=== PATIENT | female | born 1960 | race Caucasian/White ===

== ENCOUNTER 2016-08-23 09:36 | Outpatient (CLI) | payer MEDICARE | END 2016-08-23 09:37 | disposition home or self-care (01) | DX: Z79.01 Long term (current) use of anticoagulants (principal); D68.61 Antiphospholipid syndrome ==

== ENCOUNTER 2016-09-14 18:46 | Outpatient (CLI) | payer MEDICARE | END 2016-09-14 18:47 | disposition home or self-care (01) | DX: Z79.01 Long term (current) use of anticoagulants (principal); R10.9 Unspecified abdominal pain ==

== ENCOUNTER 2016-09-14 19:08 | Outpatient (CLI) | payer MEDICARE | END 2016-09-14 19:09 | disposition home or self-care (01) | DX: R06.02 Shortness of breath (principal); R10.9 Unspecified abdominal pain; Z79.1 Long term (current) use of non-steroidal anti-inflammatories (NSAID) ==

== ENCOUNTER 2016-09-26 13:17 | Outpatient (CLI) | payer MEDICARE | END 2016-09-26 13:18 | disposition home or self-care (01) | DX: R10.9 Unspecified abdominal pain (principal); Z79.01 Long term (current) use of anticoagulants; D68.61 Antiphospholipid syndrome ==

== ENCOUNTER 2016-10-27 08:20 | Outpatient (CLI) | payer MEDICARE | END 2016-10-27 08:21 | disposition home or self-care (01) | DX: Z79.01 Long term (current) use of anticoagulants (principal); D68.61 Antiphospholipid syndrome ==

== ENCOUNTER 2016-11-02 09:18 | Outpatient (CLI) | payer MEDICARE | END 2016-11-02 09:19 | disposition home or self-care (01) | DX: Z79.01 Long term (current) use of anticoagulants (principal); D68.61 Antiphospholipid syndrome ==

== ENCOUNTER 2016-11-09 09:05 | Outpatient (CLI) | payer MEDICARE | END 2016-11-09 09:06 | disposition home or self-care (01) | DX: Z79.01 Long term (current) use of anticoagulants (principal); D68.61 Antiphospholipid syndrome ==

== ENCOUNTER 2016-11-16 08:46 | Outpatient (CLI) | payer MEDICARE | END 2016-11-16 08:47 | disposition home or self-care (01) | DX: Z79.01 Long term (current) use of anticoagulants (principal); D68.61 Antiphospholipid syndrome ==

== ENCOUNTER 2016-11-23 08:57 | Outpatient (CLI) | payer MEDICARE | END 2016-11-23 08:58 | disposition home or self-care (01) | DX: Z79.01 Long term (current) use of anticoagulants (principal); D68.61 Antiphospholipid syndrome ==

== ENCOUNTER 2016-12-20 08:56 | Outpatient (CLI) | payer MEDICARE | END 2016-12-20 08:57 | disposition home or self-care (01) | DX: Z79.01 Long term (current) use of anticoagulants (principal); D68.61 Antiphospholipid syndrome ==

== ENCOUNTER 2017-01-23 08:19 | Outpatient (CLI) | payer MEDICARE | END 2017-01-23 08:20 | disposition home or self-care (01) | LOC: LAB.F 08:19 | PROVIDERS: ATTEND Registered Nurse | DX: D68.61 Antiphospholipid syndrome (principal); Z79.01 Long term (current) use of anticoagulants | CPT/HCPCS: 85610 ==

== ENCOUNTER 2017-03-08 08:29 | Outpatient (CLI) | payer MEDICARE | END 2017-03-08 08:30 | disposition home or self-care (01) | LOC: LAB.F 08:29 | PROVIDERS: ATTEND Registered Nurse | DX: D68.61 Antiphospholipid syndrome (principal); Z79.01 Long term (current) use of anticoagulants | CPT/HCPCS: 85610 ==

== ENCOUNTER 2017-03-12 08:36 | Outpatient (CLI) | payer MEDICARE | END 2017-03-12 08:37 | disposition home or self-care (01) | LOC: LAB.F 08:36 | PROVIDERS: ATTEND Registered Nurse | DX: D68.61 Antiphospholipid syndrome (principal); Z79.01 Long term (current) use of anticoagulants | CPT/HCPCS: 85610 ==

== ENCOUNTER 2017-03-20 07:31 | Outpatient (CLI) | payer MEDICARE | END 2017-03-20 07:32 | disposition home or self-care (01) | LOC: LAB.F 07:31 | PROVIDERS: ATTEND Physical Medicine & Rehabilitation | DX: D68.61 Antiphospholipid syndrome (principal); Z79.01 Long term (current) use of anticoagulants | CPT/HCPCS: 85610 ==

== ENCOUNTER 2017-04-10 07:19 | Outpatient (CLI) | payer MEDICARE | END 2017-04-10 07:20 | disposition home or self-care (01) | LOC: LAB.F 07:19 | PROVIDERS: ATTEND Registered Nurse | DX: D68.61 Antiphospholipid syndrome (principal); Z79.01 Long term (current) use of anticoagulants | CPT/HCPCS: 85610 ==

== ENCOUNTER 2017-05-08 08:47 | Outpatient (CLI) | payer MEDICARE | END 2017-05-08 08:48 | disposition home or self-care (01) | LOC: LAB.F 08:47 | PROVIDERS: ATTEND Registered Nurse | DX: D68.61 Antiphospholipid syndrome (principal); Z79.01 Long term (current) use of anticoagulants | CPT/HCPCS: 85610 ==

== ENCOUNTER 2017-07-02 08:17 | Outpatient (CLI) | payer MEDICARE | END 2017-07-02 08:18 | disposition home or self-care (01) | LOC: LAB.F 08:17 | PROVIDERS: ATTEND Registered Nurse | DX: D68.61 Antiphospholipid syndrome (principal); Z79.01 Long term (current) use of anticoagulants | CPT/HCPCS: 85610 ==

== ENCOUNTER 2017-08-27 11:03 | Outpatient (CLI) | payer MEDICARE | END 2017-08-27 11:04 | disposition home or self-care (01) | LOC: LAB.F 11:03 | PROVIDERS: ATTEND Registered Nurse | DX: D68.61 Antiphospholipid syndrome (principal); Z79.01 Long term (current) use of anticoagulants | CPT/HCPCS: 85610 ==

== ENCOUNTER 2017-09-03 08:47 | Outpatient (CLI) | payer MEDICARE | END 2017-09-03 08:48 | disposition home or self-care (01) | LOC: LAB.F 08:47 | PROVIDERS: ATTEND Registered Nurse | DX: D68.61 Antiphospholipid syndrome (principal); Z79.01 Long term (current) use of anticoagulants | CPT/HCPCS: 85610 ==

== ENCOUNTER 2017-09-13 10:21 | Outpatient (CLI) | payer MEDICARE | END 2017-09-13 10:22 | disposition home or self-care (01) | LOC: LAB.F 10:21 | PROVIDERS: ATTEND Registered Nurse | DX: D68.61 Antiphospholipid syndrome (principal); Z79.01 Long term (current) use of anticoagulants | CPT/HCPCS: 85610 ==

== ENCOUNTER 2017-12-14 09:29 | Outpatient (CLI) | payer MEDICARE | END 2017-12-14 09:30 | disposition home or self-care (01) | LOC: LAB.F 09:29 | PROVIDERS: ATTEND Registered Nurse | DX: D68.61 Antiphospholipid syndrome (principal); Z79.01 Long term (current) use of anticoagulants | CPT/HCPCS: 85610 ==

== ENCOUNTER 2018-02-05 08:38 | Outpatient (CLI) | payer MEDICARE | END 2018-02-05 08:39 | disposition home or self-care (01) | LOC: LAB.F 08:38 | PROVIDERS: ATTEND Registered Nurse | DX: D68.61 Antiphospholipid syndrome (principal); Z79.01 Long term (current) use of anticoagulants | CPT/HCPCS: 85610 ==

== ENCOUNTER 2018-02-26 08:45 | Outpatient (CLI) | payer MEDICARE | END 2018-02-26 08:46 | disposition home or self-care (01) | LOC: LAB.F 08:45 | PROVIDERS: ATTEND Registered Nurse | DX: D68.61 Antiphospholipid syndrome (principal); Z79.01 Long term (current) use of anticoagulants | CPT/HCPCS: 85610 ==

== ENCOUNTER 2018-04-11 08:32 | Outpatient (CLI) | payer MEDICARE | END 2018-04-11 08:33 | disposition home or self-care (01) | LOC: LAB.F 08:32 | PROVIDERS: ATTEND Registered Nurse | DX: D68.61 Antiphospholipid syndrome (principal); Z79.01 Long term (current) use of anticoagulants | CPT/HCPCS: 85610 ==

== ENCOUNTER 2018-05-15 10:41 | Outpatient (CLI) | payer MEDICARE ==
[2018-05-15 17:24] LABS: BASOPHILS # (AUTO) 0.1 10^3/uL (0.0-0.1); BASOPHILS % (AUTO) 0.6 %; EOSINOPHILS # (AUTO) 0.3 10^3/uL (0.0-0.7); EOSINOPHILS % (AUTO) 1.9 %; HGB - HEMOGLOBIN 15.5 g/dL (12.0-16.0); LYMPHOCYTES # (AUTO) 2.9 10^3/uL (1.5-3.5); LYMPHOCYTES % (AUTO) 20.6 %; MEAN CORPUSCULAR HEMOGLOBIN 28.8 pg (27.0-31.0); MEAN CORPUSCULAR HGB CONC 33.5 g/dL (32.0-36.0); MEAN CORPUSCULAR VOLUME 85.9 fL (81.0-99.0); MEAN PLATELET VOLUME 11.4 fL (7.9-10.8); MONOCYTES # (AUTO) 0.7 10^3/uL (0.0-1.0); MONOCYTES % (AUTO) 4.8 %; NEUTROPHILS # (AUTO) 10.1 10^3/uL (1.5-6.6); NEUTROPHILS % (AUTO) 72.1 %; PLT - PLATELET COUNT 354 10^3/uL (130-450); RED BLOOD COUNT 5.39 10^6/uL (4.20-5.40); RED CELL DISTRIBUTION WIDTH 15.6 % (12.0-15.0)
== END 2018-05-15 10:42 | disposition home or self-care (01) ==
LOC: LAB.F 10:41
PROVIDERS: ATTEND Registered Nurse
DX: D68.61 Antiphospholipid syndrome (principal); Z79.01 Long term (current) use of anticoagulants; R06.00 Dyspnea, unspecified; R50.9 Fever, unspecified
CPT/HCPCS: 36415; 80048; 83880; 85025; 85610

== ENCOUNTER 2018-05-21 08:03 | Outpatient (CLI) | payer MEDICARE ==
[2018-05-21 10:59] LABS: BASOPHILS # (AUTO) 0.1 10^3/uL (0.0-0.1); BASOPHILS % (AUTO) 0.9 %; EOSINOPHILS # (AUTO) 0.3 10^3/uL (0.0-0.7); EOSINOPHILS % (AUTO) 2.8 %; HGB - HEMOGLOBIN 14.6 g/dL (12.0-16.0); LYMPHOCYTES # (AUTO) 2.7 10^3/uL (1.5-3.5); LYMPHOCYTES % (AUTO) 23.9 %; MEAN CORPUSCULAR HEMOGLOBIN 29.4 pg (27.0-31.0); MEAN CORPUSCULAR HGB CONC 34.6 g/dL (32.0-36.0); MEAN PLATELET VOLUME 9.4 fL (7.9-10.8); MONOCYTES # (AUTO) 0.5 10^3/uL (0.0-1.0); MONOCYTES % (AUTO) 4.6 %; NEUTROPHILS # (AUTO) 7.6 10^3/uL (1.5-6.6); NEUTROPHILS % (AUTO) 67.8 %; PLT - PLATELET COUNT 345 10^3/uL (130-450); RED BLOOD COUNT 4.97 10^6/uL (4.20-5.40); RED CELL DISTRIBUTION WIDTH 15.5 % (12.0-15.0); WHITE BLOOD COUNT 11.2 x10^3/uL (4.8-10.8)
== END 2018-05-21 08:04 | disposition home or self-care (01) ==
LOC: LAB.F 08:03
PROVIDERS: ATTEND Registered Nurse
DX: D68.61 Antiphospholipid syndrome (principal); Z79.01 Long term (current) use of anticoagulants; J18.9 Pneumonia, unspecified organism
CPT/HCPCS: 36415; 85025; 85610

== ENCOUNTER 2018-06-07 08:03 | Outpatient (CLI) | payer MEDICARE | END 2018-06-07 08:04 | disposition home or self-care (01) | LOC: LAB.F 08:03 | PROVIDERS: ATTEND Registered Nurse | DX: Z79.01 Long term (current) use of anticoagulants (principal); D68.61 Antiphospholipid syndrome | CPT/HCPCS: 85610 ==

== ENCOUNTER 2018-06-13 08:35 | Outpatient (CLI) | payer MEDICARE | END 2018-06-13 08:36 | disposition home or self-care (01) | LOC: LAB.F 08:35 | PROVIDERS: ATTEND Registered Nurse | DX: Z79.01 Long term (current) use of anticoagulants (principal); D68.61 Antiphospholipid syndrome | CPT/HCPCS: 85610 ==

== ENCOUNTER 2018-06-13 09:47 | Outpatient (CLI) | payer MEDICARE ==
--- NOTE | 2018-06-13 14:23 | XRAY Report ---
Reason: PNEUMONIA, UNSPECIFIED ORGANISM Procedure Date: 06/13/2018 Accession Number: [id number] / [id number] Procedure: XR - Chest 2 View X-Ray CPT Code: 04546 FULL RESULT: EXAM: CHEST RADIOGRAPHY EXAM DATE: 06/13/2018 09:58 AM. CLINICAL HISTORY: Cough. COMPARISON: CHEST 2 VIEW PA/LAT 09/14/2016 8:04 PM. TECHNIQUE: 2 views. FINDINGS: Lungs/Pleura: There is slightly increased coarse lung markings seen in the right middle lobe and lingula region which could represent small focus of pneumonia. The remainder portions of the lungs are clear. There is no effusion, pneumothorax, or vascular congestion. Mediastinum: Heart and mediastinal contours are unremarkable. Other: None. IMPRESSION: Minor right middle lobe and lingular airspace disease could represent small areas of pneumonia or aspiration. RADIA
== END 2018-06-13 09:48 | disposition home or self-care (01) ==
LOC: DI 09:47
PROVIDERS: ATTEND Registered Nurse
DX: J18.9 Pneumonia, unspecified organism (principal); D68.61 Antiphospholipid syndrome; Z79.01 Long term (current) use of anticoagulants
CPT/HCPCS: 71046; 85610

== ENCOUNTER 2018-08-22 07:51 | Outpatient (CLI) | payer MEDICARE | END 2018-08-22 07:52 | disposition home or self-care (01) | LOC: LAB.F 07:51 | PROVIDERS: ATTEND Registered Nurse | DX: D68.61 Antiphospholipid syndrome (principal); Z79.01 Long term (current) use of anticoagulants | CPT/HCPCS: 85610 ==

== ENCOUNTER 2018-08-28 09:12 | Outpatient (CLI) | payer MEDICARE ==
--- NOTE | 2018-08-28 15:10 | XRAY Report ---
Reason: ACUTE BRONCHITIS,UNSPECIFIED Procedure Date: 08/28/2018 Accession Number: [id number] / [id number] Procedure: XR - Chest 2 View X-Ray CPT Code: 91812 FULL RESULT: EXAM: CHEST RADIOGRAPHY EXAM DATE: 08/28/2018 09:26 AM. CLINICAL HISTORY: Bacterial bronchitis diagnosed 08/26/18. History of pneumonia in May 2018. COMPARISON: CHEST 2 VIEW 06/13/2018 9:54 AM. TECHNIQUE: 2 views. FINDINGS: Lungs/Pleura: No focal opacities evident. No pleural effusion. No pneumothorax. Normal volumes. Mediastinum: Heart and mediastinal contours are stable. Other: None. IMPRESSION: No evidence of lobar pneumonia. RADIA
== END 2018-08-28 09:13 | disposition home or self-care (01) ==
LOC: DI 09:12
PROVIDERS: ATTEND Registered Nurse
DX: J20.9 Acute bronchitis, unspecified (principal)
CPT/HCPCS: 71046

== ENCOUNTER 2018-08-29 07:50 | Outpatient (CLI) | payer MEDICARE | END 2018-08-29 07:51 | disposition home or self-care (01) | LOC: LAB.F 07:50 | PROVIDERS: ATTEND Registered Nurse | DX: D68.61 Antiphospholipid syndrome (principal); Z79.01 Long term (current) use of anticoagulants | CPT/HCPCS: 85610 ==

== ENCOUNTER 2018-09-06 08:47 | Outpatient (CLI) | payer MEDICARE | END 2018-09-06 08:48 | disposition home or self-care (01) | LOC: LAB.F 08:47 | PROVIDERS: ATTEND Registered Nurse | DX: D68.61 Antiphospholipid syndrome (principal); Z79.01 Long term (current) use of anticoagulants | CPT/HCPCS: 85610 ==

== ENCOUNTER 2018-09-13 09:05 | Outpatient (CLI) | payer MEDICARE | END 2018-09-13 09:06 | disposition home or self-care (01) | LOC: LAB.F 09:05 | PROVIDERS: ATTEND Registered Nurse | DX: Z79.01 Long term (current) use of anticoagulants (principal); D68.61 Antiphospholipid syndrome | CPT/HCPCS: 85610 ==

== ENCOUNTER 2018-10-04 08:32 | Outpatient (CLI) | payer MEDICARE | END 2018-10-04 08:33 | disposition home or self-care (01) | LOC: LAB.F 08:32 | PROVIDERS: ATTEND Registered Nurse | DX: D68.61 Antiphospholipid syndrome (principal); Z79.01 Long term (current) use of anticoagulants | CPT/HCPCS: 85610 ==

== ENCOUNTER 2018-10-10 09:12 | Outpatient (CLI) | payer MEDICARE | END 2018-10-10 09:13 | disposition home or self-care (01) | LOC: RT 09:12 | PROVIDERS: ATTEND Registered Nurse | DX: J20.9 Acute bronchitis, unspecified (principal); Z87.891 Personal history of nicotine dependence | CPT/HCPCS: 94060; 94640 ==

== ENCOUNTER 2018-10-25 14:22 | Outpatient (CLI) | payer MEDICARE | END 2018-10-25 14:23 | disposition home or self-care (01) | LOC: LAB.F 14:22 | PROVIDERS: ATTEND Registered Nurse | DX: D68.61 Antiphospholipid syndrome (principal); Z79.01 Long term (current) use of anticoagulants | CPT/HCPCS: 85610 ==

== ENCOUNTER 2018-12-05 09:01 | Outpatient (CLI) | payer MEDICARE | END 2018-12-05 09:02 | disposition home or self-care (01) | LOC: LAB.F 09:01 | PROVIDERS: ATTEND Registered Nurse | DX: D68.61 Antiphospholipid syndrome (principal); Z79.01 Long term (current) use of anticoagulants | CPT/HCPCS: 85610 ==

== ENCOUNTER 2019-01-02 08:45 | Outpatient (CLI) | payer MEDICARE | END 2019-01-02 08:46 | disposition home or self-care (01) | LOC: LAB.F 08:45 | PROVIDERS: ATTEND Registered Nurse | DX: D68.61 Antiphospholipid syndrome (principal); Z79.01 Long term (current) use of anticoagulants | CPT/HCPCS: 85610 ==

== ENCOUNTER 2019-01-03 07:57 | Outpatient (CLI) | payer MEDICARE ==
[2019-01-03] MEDS ORDERED: GADOBUTROL 10 MMOL/10 ML VIAL ONE (09:08)
[2019-01-03] MEDS ORDERED: GADOBUTROL 10 MMOL/10 ML VIAL IVP ONE (09:58)
--- NOTE | 2019-01-03 14:02 | MRI Report ---
Reason: DIPLOPIA Procedure Date: 01/03/2019 Accession Number: [id number] / [id number] Procedure: MRI - Angio Brain W/O (MRA) CPT Code: FULL RESULT: EXAM MRA BRAIN EXAM DATE: 01/03/2019 08:30 AM. CLINICAL HISTORY: Episode of diplopia COMPARISON: BRAIN W/O 03/20/2015 8:34 AM. TECHNIQUE: Multiplanar, multisequence MRA sequences of the brain were performed. Other: None. Post-processing: Multiplanar 3D MIP reconstructions. IV Contrast: None. FINDINGS: The right vertebral artery intradural segment is smooth and nonstenotic. The left vertebral artery intradural segment is smooth and nonstenotic. The right posterior inferior cerebellar artery is without flow-limiting stenosis. The left posterior-inferior cerebellar artery is without flow-limiting stenosis. The left anterior inferior cerebellar artery is smooth and nonstenotic. There is a hypoplastic right anterior inferior cerebellar artery suggested. Overall, it is somewhat poorly demonstrated which is likely secondary to its small size. Therefore, its evaluation is limited. The basilar artery is without flow-limiting stenosis. The left superior cerebellar artery is without flow-limiting stenosis. The right superior cerebellar artery is without flow-limiting stenosis. The right posterior communicating artery is without flow-limiting stenosis. The right P1 and P2 segments of the right posterior cerebral artery are without flow-limiting stenosis. There is a hypoplastic left P1 segment of the left posterior cerebral artery. The left posterior communicating artery provides the predominant supply to the left posterior cerebral artery P2 segment. The right intracranial internal carotid artery is smooth and nonstenotic. The left intracranial internal carotid artery is smooth and nonstenotic. The right M1 and proximal M2 segments of the right middle cerebral artery are smooth and nonstenotic. The left M1 and proximal M2 segments of the left middle cerebral artery are smooth and nonstenotic. The right A1 segment is smooth and nonstenotic. The left A1 segment is smooth and nonstenotic. There is a small anterior communicating artery. The right A2 segment of the right anterior cerebral artery is smooth and nonstenotic. The left A2 segment of the left anterior cerebral artery is smooth and nonstenotic. IMPRESSION: 1. There is no hemodynamically significant stenosis within the head. There is no evidence of cerebral aneurysm.
--- NOTE | 2019-01-03 16:25 | MRI Report ---
Reason: DIPLOPIA Procedure Date: 01/03/2019 Accession Number: [id number] / [id number] Procedure: MRI - Brain W/WO CPT Code: FULL RESULT: EXAM: MRI BRAIN WITHOUT AND WITH CONTRAST EXAM DATE: 01/03/2019 09:15 AM. CLINICAL HISTORY: Diplopia. COMPARISON: BRAIN W/O 03/20/2015 8:34 AM. TECHNIQUE: Multiplanar, multisequence T1-weighted and fluid-sensitive MR sequences of the brain were performed. Sequences optimized for routine evaluation. Other: None. IV Contrast: 9 mL Gadavist. FINDINGS: The diffusion-weighted images are normal. There is no evidence of acute or subacute cerebral infarction. The axial FLAIR images demonstrate multiple punctate nonspecific T2 hyperintensities within the subcortical, deep, and periventricular white matter. These are greater in number than expected for a patient of this age. The differential diagnosis would include migraine versus premature onset of chronic small vessel ischemia versus a demyelinating process. There is an unchanged small focus of encephalomalacia in the right cerebellar hemisphere. There is normal enhancement within the brain parenchyma. There is normal enhancement within the deep venous sinuses. The corpus callosum is of normal size and configuration. The pituitary and sella are normal. The craniocervical junction is normal. There is mild mucosal thickening in the maxillary sinuses. The bilateral parotid spaces exhibit normal signal intensity. The optic nerves demonstrate symmetric signal intensity and size. IMPRESSION: 1. There is no evidence of acute or subacute cerebral infarction. 2. The axial FLAIR images demonstrate multiple punctate nonspecific T2 hyperintensities within the subcortical, deep, and periventricular white matter. These are greater in number than expected for a patient of this age. The differential diagnosis would include migraine versus premature onset of chronic small vessel ischemia versus a demyelinating process. 3. There is no enhancing brain mass.
--- NOTE | 2019-01-06 05:12 | Ultrasound Report ---
Reason: DIPLOPIA Procedure Date: 01/03/2019 Accession Number: [id number] / [id number] Procedure: US - Carotid Doppler Complete CPT Code: FULL RESULT: EXAM: BILATERAL CAROTID AND VERTEBRAL ARTERY DUPLEX DOPPLER ULTRASOUND: EXAM DATE: 01/03/2019 11:08 AM CLINICAL HISTORY: Diplopia. COMPARISON: None. TECHNIQUE: Grayscale imaging, color Doppler, and duplex spectral Doppler were used to evaluate the carotid and vertebral arteries bilaterally. Static images were obtained. FINDINGS: There is a small amount of plaque in the carotid bifurcations bilaterally. Normal antegrade flow is present in bilateral vertebral arteries. VELOCITIES (cm/sec): Right CCA mid: PSV 70 cm/sec CCA dist: PSV 79 cm/sec ICA prox: PSV 70 cm/sec, EDV 17 cm/sec ICA mid: PSV 64 cm/sec, EDV 22 cm/sec ICA dist: PSV 96 cm/sec, EDV 32 cm/sec ECA: PSV 110 cm/sec Vert: PSV 54 cm/sec ICA/CCA: 1.21 Left CCA mid: PSV 86 cm/sec CCA dist: PSV 81 cm/sec ICA prox: PSV 72 cm/sec, EDV 20 cm/sec ICA mid: PSV 80 cm/sec, EDV 26 cm/sec ICA dist: PSV 86 cm/sec, EDV 24 cm/sec ECA: PSV 77 cm/sec Vert: PSV 48 cm/sec ICA/CCA: 1.0 ICA diameter stenosis: Right: <50% by velocity and <70% by NASCET criteria. Left: <50% by velocity and <70% by NASCET criteria. IMPRESSION: 1. Small amount of bilateral carotid artery plaquing. 2. In the right carotid artery there are no elevated carotid artery velocities to suggest hemodynamically significant stenosis. 3. In the left carotid artery there are no elevated carotid artery velocities to suggest hemodynamically significant stenosis. 4. Normal antegrade flow is present in bilateral vertebral arteries. General Recommendations: Stenosis =50% ICA - Follow-up ultrasound 6-12 months Stenosis <50% ICA - High Risk Patient with plaque - Follow-up ultrasound 1-2 years Normal Study but High Risk Patient - Follow-up ultrasound 3-5 years Management recommendations and diagnostic criteria are based on current IAC endorsed standards in Carotid Artery Stenosis: Grayscale and Doppler Ultrasound Diagnosis. Validated velocity measurements with angiographic measurements and velocity criteria are extrapolated from diameter data as defined by the Society of Radiologists in Ultrasound Consensus Conference Radiology 2003; 229;340-346. RADIA
== END 2019-01-03 07:58 | disposition home or self-care (01) ==
LOC: DI 07:57
PROVIDERS: ATTEND Registered Nurse
DX: H53.2 Diplopia (principal)
CPT/HCPCS: 70544; 70553; 93880; A9585

== ENCOUNTER 2019-03-10 09:21 | Outpatient (CLI) | payer MEDICARE | END 2019-03-10 09:22 | disposition home or self-care (01) | LOC: LAB.S 09:21 | PROVIDERS: ATTEND Registered Nurse | DX: D68.61 Antiphospholipid syndrome (principal); Z79.01 Long term (current) use of anticoagulants | CPT/HCPCS: 85610 ==

== ENCOUNTER 2019-03-18 09:55 | Outpatient (CLI) | payer MEDICARE | END 2019-03-18 09:56 | disposition home or self-care (01) | LOC: LAB.S 09:55 | PROVIDERS: ATTEND Registered Nurse | DX: D68.61 Antiphospholipid syndrome (principal); Z79.01 Long term (current) use of anticoagulants | CPT/HCPCS: 85610 ==

== ENCOUNTER 2019-03-31 10:22 | Outpatient (CLI) | payer MEDICARE | END 2019-03-31 10:23 | disposition home or self-care (01) | LOC: LAB.S 10:22 | PROVIDERS: ATTEND Registered Nurse | DX: Z79.01 Long term (current) use of anticoagulants (principal); D68.61 Antiphospholipid syndrome | CPT/HCPCS: 85610 ==

== ENCOUNTER 2019-04-22 10:19 | Outpatient (CLI) | payer MEDICARE | END 2019-04-22 10:20 | disposition home or self-care (01) | LOC: LAB.S 10:19 | PROVIDERS: ATTEND Registered Nurse | DX: D68.61 Antiphospholipid syndrome (principal); Z79.01 Long term (current) use of anticoagulants | CPT/HCPCS: 85610 ==

== ENCOUNTER 2019-06-12 14:32 | Outpatient (CLI) | payer MEDICARE | END 2019-06-12 14:33 | disposition home or self-care (01) | LOC: LAB.S 14:32 | PROVIDERS: ATTEND Registered Nurse | DX: Z79.01 Long term (current) use of anticoagulants (principal); D68.61 Antiphospholipid syndrome | CPT/HCPCS: 85610 ==

== ENCOUNTER 2019-07-22 07:45 | Outpatient (CLI) | payer MEDICARE ==
--- NOTE | 2019-07-23 11:47 | Mammography Report ---
Reason: JONATHAN MAMMO Procedure Date: 07/22/2019 Accession Number: [id number] / [id number] Procedure: MGS - Screening Mammo Dig Bilat CPT Code: Final Report FULL RESULT: EXAM: Screening Mammo Dig Bilat DATE: 07/22/2019 8:05 AM CLINICAL HISTORY: The patient is an asymptomatic 58-year-old female presenting for screening mammography. No reported personal nor family history breast cancer. TECHNIQUE: (B) - Bilateral CC and MLO views were obtained. COMPARISON: 11/01/2012 PARENCHYMAL PATTERN: (A) - The breasts demonstrate scattered fibroglandular densities bilaterally. FINDINGS: There are no suspicious masses, calcifications, or areas of distortion. IMPRESSION: Negative examination. BI-RADS category 1. RECOMMENDATION: (ANNUAL) - Recommend routine annual screening mammography. BI-RADS CATEGORY: (1) - Negative. STANDARD QUALIFYING STATEMENTS: 1. This examination was reviewed with the aid of Computer-Aided Detection (CAD). 2. A negative or benign imaging report should not preclude biopsy if clinically suspicious findings are present. 3. Dense breasts may obscure an underlying neoplasm.
== END 2019-07-22 07:46 | disposition home or self-care (01) ==
LOC: DI.S 07:45
PROVIDERS: ATTEND Registered Nurse
DX: Z12.31 Encounter for screening mammogram for malignant neoplasm of breast (principal); D68.61 Antiphospholipid syndrome; Z79.01 Long term (current) use of anticoagulants
CPT/HCPCS: 77067; 85610

== ENCOUNTER 2019-07-22 08:07 | Outpatient (CLI) | payer MEDICARE | END 2019-07-22 08:08 | disposition home or self-care (01) | LOC: LAB.S 08:07 | PROVIDERS: ATTEND Registered Nurse | DX: Z79.01 Long term (current) use of anticoagulants (principal); D68.61 Antiphospholipid syndrome | CPT/HCPCS: 85610 ==

== ENCOUNTER 2019-08-26 10:58 | Outpatient (CLI) | payer MEDICARE | END 2019-08-26 10:59 | disposition home or self-care (01) | LOC: LAB.S 10:58 | PROVIDERS: ATTEND Registered Nurse | DX: Z79.01 Long term (current) use of anticoagulants (principal); D68.61 Antiphospholipid syndrome | CPT/HCPCS: 85610 ==

== ENCOUNTER 2019-09-29 09:26 | Outpatient (CLI) | payer MEDICARE | END 2019-09-29 09:27 | disposition home or self-care (01) | LOC: LAB.S 09:26 | PROVIDERS: ATTEND Registered Nurse | DX: Z79.01 Long term (current) use of anticoagulants (principal); D68.61 Antiphospholipid syndrome | CPT/HCPCS: 85610 ==

== ENCOUNTER 2019-11-05 10:24 | Outpatient (CLI) | payer MEDICARE | END 2019-11-05 10:25 | disposition home or self-care (01) | LOC: LAB.S 10:24 | PROVIDERS: ATTEND Registered Nurse | DX: D68.61 Antiphospholipid syndrome (principal); Z79.01 Long term (current) use of anticoagulants | CPT/HCPCS: 85610 ==

== ENCOUNTER 2019-11-17 09:18 | Outpatient (CLI) | payer MEDICARE | END 2019-11-17 09:19 | disposition home or self-care (01) | LOC: LAB.S 09:18 | PROVIDERS: ATTEND Registered Nurse | DX: D68.61 Antiphospholipid syndrome (principal); Z79.01 Long term (current) use of anticoagulants | CPT/HCPCS: 85610 ==

== ENCOUNTER 2019-12-15 12:53 | Outpatient (CLI) | payer MEDICARE | END 2019-12-15 12:54 | disposition short-term general hospital (02) | LOC: EMS 12:53 | PROVIDERS: ATTEND Surgery | DX: R42 Dizziness and giddiness (principal); R11.2 Nausea with vomiting, unspecified; R07.9 Chest pain, unspecified; R06.02 Shortness of breath | CPT/HCPCS: A0425; A0427 ==

== ENCOUNTER 2020-02-10 15:10 | Outpatient (CLI) | payer MEDICARE ==
[2020-02-10 20:00] LABS: BASOPHILS # (AUTO) 0.1 10^3/uL (0.0-0.1); BASOPHILS % (AUTO) 0.6 %; EOSINOPHILS # (AUTO) 0.3 10^3/uL (0.0-0.7); EOSINOPHILS % (AUTO) 2.2 %; HGB - HEMOGLOBIN 15.7 g/dL (12.0-16.0); LYMPHOCYTES # (AUTO) 3.8 10^3/uL (1.5-3.5); LYMPHOCYTES % (AUTO) 31.9 %; MEAN CORPUSCULAR HEMOGLOBIN 28.4 pg (27.0-31.0); MEAN CORPUSCULAR VOLUME 83.5 fL (81.0-99.0); MEAN PLATELET VOLUME 12.7 fL (7.9-10.8); MONOCYTES # (AUTO) 0.7 10^3/uL (0.0-1.0); MONOCYTES % (AUTO) 6.1 %; NEUTROPHILS % (AUTO) 58.9 %; PLT - PLATELET COUNT 449 10^3/uL (130-450); RED BLOOD COUNT 5.53 10^6/uL (4.20-5.40); RED CELL DISTRIBUTION WIDTH 15.7 % (12.0-15.0); WHITE BLOOD COUNT 11.8 x10^3/uL (4.8-10.8)
[2020-02-10 20:06] LABS: ALBUMIN 3.9 g/dL (3.2-5.5); ALBUMIN/GLOBULIN RATIO 0.9 (1.0-2.2); BILIRUBIN,TOTAL 0.4 mg/dL (0.2-1.0); CALCIUM 10.5 mg/dL (8.5-10.3); CREATININE 0.9 mg/dL (0.4-1.0); TOTAL PROTEIN 8.1 g/dL (6.7-8.2)
== END 2020-02-10 15:11 | disposition home or self-care (01) ==
LOC: LAB.S 15:10
PROVIDERS: ATTEND Nurse Practitioner Family
DX: R50.9 Fever, unspecified (principal)
CPT/HCPCS: 36415; 80053; 85025; 87040; 87077; 87086; 87181

== ENCOUNTER 2020-10-22 08:47 | Outpatient (CLI) | payer MEDICARE | END 2020-10-22 08:48 | disposition home or self-care (01) | LOC: NS 08:47 | PROVIDERS: ATTEND Registered Nurse | DX: Z71.3 Dietary counseling and surveillance (principal); E11.21 Type 2 diabetes mellitus with diabetic nephropathy; E11.40 Type 2 diabetes mellitus with diabetic neuropathy, unspecified | CPT/HCPCS: 97802 ==

== ENCOUNTER 2021-02-18 09:28 | Outpatient (CLI) | payer MEDICARE ==
[2021-02-18 15:54] LABS: ALBUMIN 4.2 g/dL (3.2-5.5); ALBUMIN/GLOBULIN RATIO 1.1 (1.0-2.2); BILIRUBIN,TOTAL 0.5 mg/dL (0.2-1.0); CALCIUM 10.1 mg/dL (8.5-10.3); POTASSIUM 4.1 mmol/L (3.5-5.0); TOTAL PROTEIN 7.9 g/dL (6.7-8.2)
[2021-02-18 18:17] LABS: ESTIMATED AVERAGE GLUCOSE 171 mg/dL (70-100); HEMOGLOBIN A1c% 7.6 % (4.27-6.07)
== END 2021-02-18 09:29 | disposition home or self-care (01) ==
LOC: LAB.S 09:28
PROVIDERS: ATTEND Nurse Practitioner Family
DX: R42 Dizziness and giddiness (principal); E11.9 Type 2 diabetes mellitus without complications
CPT/HCPCS: 36415; 80053; 83036

== ENCOUNTER 2021-03-17 10:53 | Outpatient (CLI) | payer MEDICARE ==
[2021-03-17 15:08] LABS: BASOPHILS # (AUTO) 0.1 10^3/uL (0.0-0.1); BASOPHILS % (AUTO) 0.6 %; EOSINOPHILS # (AUTO) 0.2 10^3/uL (0.0-0.7); EOSINOPHILS % (AUTO) 1.9 %; HGB - HEMOGLOBIN 15.2 g/dL (12.0-16.0); LYMPHOCYTES # (AUTO) 3.6 10^3/uL (1.5-3.5); LYMPHOCYTES % (AUTO) 35.9 %; MEAN CORPUSCULAR HEMOGLOBIN 27.5 pg (27.0-31.0); MEAN CORPUSCULAR HGB CONC 31.7 g/dL (32.0-36.0); MEAN CORPUSCULAR VOLUME 86.8 fL (81.0-99.0); MEAN PLATELET VOLUME 9.7 fL (7.9-10.8); MONOCYTES # (AUTO) 0.7 10^3/uL (0.0-1.0); MONOCYTES % (AUTO) 6.5 %; NEUTROPHILS # (AUTO) 5.5 10^3/uL (1.5-6.6); NEUTROPHILS % (AUTO) 54.8 %; PLT - PLATELET COUNT 405 10^3/uL (130-450); RED BLOOD COUNT 5.53 10^6/uL (4.20-5.40); RED CELL DISTRIBUTION WIDTH 16.2 % (12.0-15.0)
[2021-03-17 15:37] LABS: ALBUMIN 3.8 g/dL (3.2-5.5); BILIRUBIN,TOTAL 0.8 mg/dL (0.2-1.0); CALCIUM 10.4 mg/dL (8.5-10.3); CREATININE 1.1 mg/dL (0.4-1.0); TOTAL PROTEIN 7.6 g/dL (6.7-8.2)
== END 2021-03-17 10:54 | disposition home or self-care (01) ==
LOC: LAB.S 10:53
PROVIDERS: ATTEND Nurse Practitioner Family
DX: E83.52 Hypercalcemia (principal); D72.829 Elevated white blood cell count, unspecified
CPT/HCPCS: 36415; 80053; 82306; 83970; 85025

== ENCOUNTER 2021-12-26 08:18 | Outpatient (CLI) | payer MEDICARE ==
--- NOTE | 2021-12-26 08:54 | DEXA Report ---
PROCEDURE: Dexa Spine and/or Hip INDICATIONS: POSTMENOPAUSAL TECHNIQUE: Dual energy x-ray absorptiometry (DXA) was performed on a [employer] System. Regions measur ed are the AP Spine, femoral neck, and if needed forearm. COMPARISON: None. FINDINGS: Lumbar Spine: Bone Mineral Density 1.368 g/cm/cm,T score 1.6. Left Hip: Bone Mineral Density 1.191 g/cm/cm,T score 1.5. Left Femoral Neck: Bone Mineral Density 1.076 g/cm/cm, T score 0.3. (T score greater or equal to -1.0: NORMAL) (T score from -1.1 to -2.4: OSTEOPENIA) (T score less than or equal to -2.5 to: OSTEOPOROSIS) Impression: Normal bone mineral density. Patients with diagnosis of osteoporosis or osteopenia should have regular bone mineral density assess ment. For those eligible for Medicare, routine testing is allowed once every 2 years. Testing frequ ency can be increased for patients who have rapidly progressing disease or for those who are receivin g medical therapy to restore bone mass. Reviewed by: Gregg Fuchs MD on 12/26/2021 8:52 AM PDT Approved by: Gregg Fuchs MD on 12/26/2021 8:52 AM PDT Station ID: [id number]
== END 2021-12-26 08:19 | disposition home or self-care (01) ==
LOC: DI 08:18
PROVIDERS: ATTEND Registered Nurse
DX: Z78.0 Asymptomatic menopausal state (principal)

== ENCOUNTER 2022-01-06 09:14 | Outpatient (CLI) | payer MEDICARE ==
[2022-01-06 15:05] LABS: CREATININE,URINE 162.9 mg/dL; MICROALBUM/CREATININE RATIO,UR 84.7 ug/mg (<30.0); MICROALBUMIN,URINE 13.8 mg/dL (0-300.0)
[2022-01-06 15:18] LABS: CALCIUM 10.8 mg/dL (8.5-10.3); POTASSIUM 4.3 mmol/L (3.5-5.0)
[2022-01-06 22:24] LABS: ESTIMATED AVERAGE GLUCOSE 226 mg/dL (70-100); HEMOGLOBIN A1c% 9.5 % (4.27-6.07)
== END 2022-01-06 09:15 | disposition home or self-care (01) ==
LOC: LAB.S 09:14
PROVIDERS: ATTEND Registered Nurse
DX: E11.42 Type 2 diabetes mellitus with diabetic polyneuropathy (principal)
CPT/HCPCS: 36415; 80048; 82043; 82570; 83036

== ENCOUNTER 2022-01-12 09:52 | Outpatient (CLI) | payer MEDICARE ==
[2022-01-12 14:53] LABS: CALCIUM 10.5 mg/dL (8.5-10.3); CREATININE 0.9 mg/dL (0.4-1.0); PHOSPHORUS 2.8 mg/dL (2.5-4.6)
== END 2022-01-12 09:53 | disposition home or self-care (01) ==
LOC: LAB.S 09:52
PROVIDERS: ATTEND Internal Medicine
DX: E83.52 Hypercalcemia (principal)
CPT/HCPCS: 36415; 82306; 82310; 82565; 83970; 84100

== ENCOUNTER 2022-06-07 07:46 | Outpatient (CLI) | payer MEDICARE ==
--- NOTE | 2022-06-07 12:12 | Mammography Report ---
BILATERAL DIGITAL SCREENING MAMMOGRAM 3D/2D WITH EXAGGERATED CC: 06/07/2022 CLINICAL: Routine screening. Comparison is made to exams dated: 07/22/2019 mammogram and 11/01/2012 mammogram - [facility]. There are scattered areas of fibroglandular density in both breasts (category b / 25%-50% glandular t issue). No significant masses, calcifications, or other findings are seen in either breast. There has been no significant interval change. IMPRESSION: NEGATIVE There is no mammographic evidence of malignancy. A 1 year screening mammogram is recommended. Based on the Tyrer Cuzick model (a risk assessment model) the patients lifetime risk is 6.1% and her 10 year risk is 2.5%. According to the ACR, ACS, and NCCN guidelines, an annual breast MRI exam brooks g with mammogram is recommended if the patients lifetime risk is 20% or greater. This exam was interpreted at Station ID: [id number]. NOTE: For mammograms, a report in lay terms will be sent to the patient. Approximately 15% of breast malignancies will not be visualized mammographically. In the management of a palpable breast mass, a negative mammogram must not discourage biopsy of a clinically suspicious lesion. Electronically Signed By: Ralph sandy/wilton:06/07/2022 08:43:28 ACR BI-RADS Category 1: Negative 3341F PARENCHYMAL PATTERN: (A) - The breast(s) demonstrate(s) scattered fibroglandular densities. BI-RADS CATEGORY: (1) - 1 RECOMMENDATION: (ANNUAL) - Recommend routine annual screening mammography. [id number] 1 year screening LATERALITY: (B)
== END 2022-06-07 07:47 | disposition home or self-care (01) ==
LOC: DI.S 07:46
PROVIDERS: ATTEND Registered Nurse
DX: Z12.31 Encounter for screening mammogram for malignant neoplasm of breast (principal)

== ENCOUNTER 2022-07-07 07:45 | Outpatient (CLI) | payer MEDICARE | END 2022-07-07 07:46 | disposition short-term general hospital (02) | LOC: EMS 07:45 | DX: R07.89 Other chest pain (principal); R05.9 Cough, unspecified; R06.89 Other abnormalities of breathing | CPT/HCPCS: A0425; A0427 ==

== ENCOUNTER 2023-02-22 07:30 | Outpatient (CLI) | payer MEDICARE | END 2023-02-22 23:59 | disposition short-term general hospital (02) | LOC: EMS 07:30 | DX: R07.9 Chest pain, unspecified (principal); M25.512 Pain in left shoulder; R11.0 Nausea; R42 Dizziness and giddiness | CPT/HCPCS: A0425; A0427 ==